=== PATIENT | male | born 1995 | race Two or more races ===

== ENCOUNTER → 2025-05-25 | Emergency (ER) | payer OTHER, MEDICAID ==
[~2025-05-25] VITALS: Ht 180.3 cm; Wt 108.6 kg
[2025-05-25 19:51] VITALS: TEMP 98.8
[2025-05-25] MEDS: BACITRACIN 28 GM OINTMENT TP ONE (20:17)
[2025-05-25] MEDS: BACITRACIN 0.9 GM PACKET OINTMENT TP ONE (20:17)
[2025-05-25] MEDS: ACETAMINOPHEN 500 MG TABLET PO ONE (20:18)
[2025-05-25] MEDS: PERTUSS(ACELL),DIPH,TET/PF 0.5 ML SYRINGE [ADULT] IM. ONE (20:18)
[2025-05-25 20:25] VITALS: BP 147/91; PULSE 79; RESP 18; O2SAT 98
== END | disposition still patient (30) ==
LOC: EMS 19:43
DX: S40.819A Abrasion of unspecified upper arm, initial encounter (principal); F12.90 Cannabis use, unspecified, uncomplicated; I10 Essential (primary) hypertension; V49.40XA Driver injured in collision with unspecified motor vehicles in traffic accident, initial encounter; Y93.89 Activity, other specified; Y92.488 Other paved roadways as the place of occurrence of the external cause; Y99.8 Other external cause status
CPT/HCPCS: 90471; 90715; 99284